=== PATIENT | female | born 1965 | race Caucasian/White ===

== ENCOUNTER 2020-03-10 09:06 | Inpatient (IN) ==
--- NOTE | 2020-03-10 09:53 | ERNOTE ---
Date of Service: 03/10/20 Time Seen by Provider: 03/10/20 09:49 Stated Complaint: covid positive Presenting Symptoms:: cough, sore throat, fever Source: patient Exam Limitations: no limitations Immunizations: IMMUNIZATION HX Immunizations Up to Date Yes History of Influenza Vaccine Yes Allergies/Adverse Reactions: Allergies No Known Allergies Allergy (Verified 03/10/20 09:19) Home Medications: HOME MEDICATIONS valacyclovir 1 gram tablet 1,000 mg PO DAILY #30 tab 06/14/18 [Last Taken Unknown] meloxicam 15 mg tablet 15 mg PO DAILY #90 tab 12/05/18 [Last Taken Unknown] hydrochlorothiazide 25 mg tablet 25 mg PO DAILY #90 tab 10/05/19 [Last Taken Unknown] - History of Present Ilness Narrative: dx on tuesday with covid has had worsening of symptoms, dyspnea , cough fever,loss of sense of smell Timing: constant, getting worse Severity: moderate Review of Systems - Review of Systems Constitutional: Present: See HPI EYE: Present: no symptoms reported ENT: Present: no symptoms reported Respiratory: Present: See HPI Cardiology: Present: no symptoms reported Gastrointestinal/Abdominal: Present: no symptoms reported Genitourinary: Present: no symptoms reported Musculoskeletal: Present: no symptoms reported Skin: Present: no symptoms reported Neurological: Present: no symptoms reported Endocrine: Present: no symptoms reported, unexplained weight loss Psych: Present: no symptoms reported Medical History (Last Reviewed 03/10/20 @ 09:20 by Jayla Dumont RN) Hyperlipidemia Onset Date: ~07/02/15 Obesity Bronchitis, acute Onset Date: ~11/08/11 Elevated blood pressure reading without diagnosis of hypertension Onset Date: ~11/08/11 Surgical History: Surgical History (Last Reviewed 03/10/20 @ 09:20 by Jayla Dumont RN) Wart wart removed on hands and feet Family History: Family History (Last Reviewed 03/10/20 @ 09:20 by Jayla Dumont RN) Father Hypertension Cancer Liver cancer Social History: (Last Reviewed 03/10/20 @ 09:20 by Jayla Dumont RN) Social History: adopted: No prison: No Marital status: lives independently: No household members: spouse number of children: 0 current occupational status: employed 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 Highest education level completed: some college, no degree Sexually Active: Yes Service: No Tobacco: Smoking Status: Former smoker Alcohol: alcohol intake: current alcohol intake frequency: holiday/special occasion Substance Use: substance use type: does not use Dietary Habits: caffeine: Yes Type: coffee Cleo/Bahai: special cleo needs: No Physical Exam - Physical Exam General Appearance: Present: mild distress Head Exam: Present: normal inspection, no evidence of injury Ears, Nose, Throat: Present: normal ENT inspection, normal pharynx Neck: Present: normal inspection, nontender Respiratory: Present: respiratory distress, crackles, rales, rhonchi Cardiovascular/Chest: Present: regular rate, rhythm, no murmur, normal peripheral pulses Gastrointestinal/Abdominal: Present: normal bowel sounds, nontender, nondistended, soft, no organomegaly Back Exam: Present: normal inspection, normal range of motion, no CVA tenderness, no vertebral tenderness Extremity Exam: Present: normal inspection, non-tender, normal range of motion, no edema Neurological Exam: Present: alert, oriented, normal mood/affect, no motor/sensory deficits Skin Exam: Present: normal color, warm/dry Lymphatic Exam: Present: no adenopathy Progress - Date and Time Seen: Date and Time: 03/10/20 11:59 patient unchanged, case discussed with dr collins, to be admitted - Results and Orders Patient's Lab Results:: I have reviewed the patient's lab results. - Vital Signs Patient's Vital Signs:: I have reviewed the patient's vital signs. Vital Signs: Vital Signs 03/10/20 09:15 Temperature 36.8 C Pulse Rate 86 Respiratory Rate 24 H Blood Pressure 146/95 H O2 Sat by Pulse Oximetry 89 L - EKG EKG #1 EKG: NSR - X-Ray X-Ray #1 X-Ray: chest Interpretation: Discd w/ radiologist - infiltrates bilaterally - Progress/Reassessment Chief Complaint: Upper Respiratory Symptoms Progress:: Unchanged - Transfer of Care Expected Disposition: Admit Plan - Plan Plan: to admit to hospital Departure Clinical Impression: COVID-19, Pneumonia - Departure Disposition: Short Term Hospital Inpatient Condition: Serious Referrals: Ronn Collins DO [Primary Care Provider] -
[2020-03-10 09:56] LABS: Hematocrit 48.1 % (37.0-47.0); Hemoglobin 15.4 gm/dL (12.5-16.0); Mean Cell Volume 87.9 fl (78-100); Mean Corpuscular Hemoglobin 28.2 pg (27-31); Mean Platelet Volume 9.5 fl (8-12.5); Neutrophil % 69.1 % (42-75.0); Platelet Count 225 K/mm3 (150-450); Red Blood Count 5.47 M/mm3 (4.2-5.4); Red Cell Distribution Width 12.6 % (11.5-14.0); White Blood Count 5.8 K/mm3 (4.0-10.5)
[2020-03-10 10:04] LABS: Anion Gap 13.6 mmol/L (6.8-13.8); BUN/Creatinine Ratio 13.6 (9.0-21.6); Bilirubin, Total 0.5 mg/dL (0.0-1.1); Ca. Corrected For Albumin 9.3 mg/dL (8.4-10.2); Calcium * 8.8 mg/dL (7.9-10.9); Carbon Dioxide 29.2 mmol/L (24-32.6); Potassium 2.8 mmol/L (3.4-4.6); Total Protein 7.7 gm/dL (6.2-8.2)
[2020-03-10] MEDS ORDERED: DEXAMETHASONE SODIUM PHOSP/PF 10 MG/ML VIAL IV ONE (11:55)
[2020-03-10] MEDS: NORMAL SALINE 1,000 ML IV PRN ×2 (13:15→21:58)
[2020-03-10] MEDS ORDERED: AZITHROMYCIN 250 MG TABLET PO ONE (21:01)
[2020-03-10] MEDS ORDERED: POTASSIUM CHLORIDE 20 MEQ TABLET.SA PO ONE (21:01)
--- NOTE | 2020-03-10 23:54 | HP ---
Chief Complaint - Chief Complaint Date of Service: 03/10/20 Time of Service: 23:14 Chief Complaint: Shortness of breath with COVID19 History of Present Illness: Pamela is a 55 yo female diagnosed with COVID19 a week ago. She reports she started having shortness of breath and cough about 11 days ago, got tested 7 days ago, and then has become progressively more short of breath. She reports some mild fevers and fatigue. She has a mild productive cough. She was seen in the ER today for worsening shortness of breath and a chest xray showed multilobe pneumonia (SUBTLE PATCHY INFILTRATES LEFT MIDLUNG AND RIGHT LUNG BASE.) She has been borderline hypoxic with oxygen dropping to 88% briefly with exertion but returning quickly to above 90% with rest. She reports multiple family members with COVID19 that she has been in close contact with. Medical History (Last Reviewed 03/10/20 @ 13:17 by Aida Dominguez RN) Hyperlipidemia Onset Date: ~07/02/15 Obesity Bronchitis, acute Onset Date: ~11/08/11 Elevated blood pressure reading without diagnosis of hypertension Onset Date: ~11/08/11 Surgical History: Surgical History (Last Reviewed 03/10/20 @ 13:17 by Aida Dominguez RN) Wart wart removed on hands and feet Family History: Family History (Last Reviewed 03/10/20 @ 13:17 by Aida Dominguez RN) Father Hypertension Cancer Liver cancer Social History: (Last Reviewed 03/10/20 @ 13:17 by Aida Dominguez RN) Social History: adopted: No chcf: No Marital status: lives independently: No household members: spouse number of children: 0 current occupational status: employed 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 Absent: Chills EENTM: Present: No Symptoms Reported Respiratory: Present: Cough, Shortness of Breath Cardiac: Absent: Chest Pain, Edema, Palpitations Abdominal: Absent: Nausea, Vomiting Genitourinary: Present: No Symptoms Reported Musculoskeletal: Present: No Symptoms Reported Neurological: Present: No Symptoms Reported Skin: Present: No Symptoms Reported Endocrine: Present: No Symptoms Reported Immunizations: IMMUNIZATION HX Immunizations Up to Date Yes History of Influenza Vaccine Yes Allergies/Adverse Reactions: Allergies Allergy/AdvReac Type Severity Reaction Status Date / Time No Known Allergies Allergy Verified 03/10/20 09:19 Home Medications: HOME MEDICATIONS meloxicam 15 mg tablet 15 mg PO DAILY #90 tab 12/05/18 [Last Taken Unknown] hydrochlorothiazide 25 mg tablet 25 mg PO DAILY #90 tab 10/05/19 [Last Taken Unknown] valACYclovir HCL [Valtrex] 1,000 mg PO DAILY PRN 03/10/20 [Last Taken Unknown] Exam - Exam Vital Signs: Vital Signs - Last Taken Temp 36.4 C 03/10/20 22:21 Pulse 78 03/10/20 22:21 Resp 20 03/10/20 22:21 BP 148/85 H 03/10/20 22:21 Pulse Ox 96 03/10/20 22:21 Constitutional: Present: Alert, Oriented x3, Cooperative ENT Exam: Present: hearing grossly normal Eye Exam: bilateral eye: normal inspection Respiratory: Present: chest non-tender, lungs clear, normal breath sounds, no respiratory distress Cardiovascular/Chest: Present: regular rate, rhythm, no murmur Peripheral Pulses: radial (R): 2+, radial (L): 2+ Abdomen: Present: Normal bowel sounds, soft, nontender, nondistended Skin Exam: Present: normal color, warm/dry, no cyanosis Neurologic: Present: no motor/sensory deficits, alert, normal mood/affect, oriented x 3 Appearance: Present: appropriate appearance, appropriate insight Eye contact: Present: cooperative, good eye contact, normal speech Thoughts: Present: normal thought pattern, no apparent hallucination Diagnostic Studies: Abnormal Lab Results 03/10/20 03/10/20 03/10/20 Range/Units 09:38 09:38 11:20 RBC 5.47 H (4.2-5.4) M/mm3 Hct 48.1 H (37.0-47.0) % Immature Gran % (Auto) 0.50 H (0.001-0.429) % Lymphocytes # 1.38 L (1.5-3.5) k/mm3 pCO2 30.3 L (32.0-45.0) mmHg pO2 80.1 L (83.0-108.0) mmHg ABG pH 7.50 H (7.35-7.45) Potassium 2.8 L (3.4-4.6) mmol/L Random Glucose 114 H (70-110) mg/dL Albumin 3.0 L (3.4-5.0) gm/dl Laboratory Results WBC 5.8 K/mm3 (4.0-10.5) 03/10/20 09:38 RBC 5.47 M/mm3 (4.2-5.4) H 03/10/20 09:38 Hgb 15.4 gm/dL (12.5-16.0) 03/10/20 09:38 Hct 48.1 % (37.0-47.0) H 03/10/20 09:38 MCV 87.9 fl (78-100) 03/10/20 09:38 MCH 28.2 pg (27-31) 03/10/20 09:38 MCHC 32.0 g/dl (32-36) 03/10/20 09:38 RDW 12.6 % (11.5-14.0) 03/10/20 09:38 Plt Count 225 K/mm3 (150-450) 03/10/20 09:38 MPV 9.5 fl (8-12.5) 03/10/20 09:38 Immature Gran % (Auto) 0.50 % (0.001-0.429) H 03/10/20 09:38 Immature Gran # (Auto) 0.03 K/mm3 (0.000-0.0310) 03/10/20 09:38 Neutrophils % 69.1 % (42-75.0) 03/10/20 09:38 Lymphocytes % 23.7 % (20-51) 03/10/20 09:38 Monocytes % 6.3 % (0.0-9) 03/10/20 09:38 Eosinophils % 0.2 % (0.0-3.0) 03/10/20 09:38 Basophils % 0.2 % (0.0-1.0) 03/10/20 09:38 Nucleated RBC % 0.0 k/mm3 (0-1) 03/10/20 09:38 Neutrophils # 4.0 K/mm3 (1.3-6.0) 03/10/20 09:38 Lymphocytes # 1.38 k/mm3 (1.5-3.5) L 03/10/20 09:38 Monocytes # 0.4 k/mm3 (0.0-1.0) 03/10/20 09:38 Eosinophils # 0.0 k/mm3 (0.0-0.7) 03/10/20 09:38 Absolute Basophils 0.0 k/mm3 (0.0-0.1) 03/10/20 09:38 pCO2 30.3 mmHg (32.0-45.0) L 03/10/20 11:20 pO2 80.1 mmHg (83.0-108.0) L 03/10/20 11:20 HCO3 22.8 mmol/L (21.0-28.0) 03/10/20 11:20 Total CO2 23.8 mmol/L (19.0-24.0) 03/10/20 11:20 Base Excess 0.7 mmol/L (-2.0-3.0) 03/10/20 11:20 ABG pH 7.50 (7.35-7.45) H 03/10/20 11:20 ABG O2 Sat (Measured) 96.8 % (94.0-98.0) 03/10/20 11:20 Sodium 138 mmol/L (132-142) 03/10/20 09:38 Plasma Sodium 138 mmol/L (130-142) 03/10/20 09:38 Potassium 2.8 mmol/L (3.4-4.6) L 03/10/20 09:38 Chloride 98 mmol/L (97-106) 03/10/20 09:38 Carbon Dioxide 29.2 mmol/L (24-32.6) 03/10/20 09:38 Anion Gap 13.6 mmol/L (6.8-13.8) 03/10/20 09:38 BUN 12 mg/dL (3-23) 03/10/20 09:38 Creatinine 0.88 mg/dL (0.4-1.4) 03/10/20 09:38 Est GFR (Non-Af Amer) 71 mL/min (60-130) 03/10/20 09:38 BUN/Creatinine Ratio 13.6 (9.0-21.6) 03/10/20 09:38 Random Glucose 114 mg/dL (70-110) H 03/10/20 09:38 Lactic Acid, Venous 1.4 mmol/L (0.4-2.0) 03/10/20 09:38 Calcium 8.8 mg/dL (7.9-10.9) 03/10/20 09:38 Calcium Adj for Albumin 9.3 mg/dL (8.4-10.2) 03/10/20 09:38 Total Bilirubin 0.5 mg/dL (0.0-1.1) 03/10/20 09:38 AST 39 U/L (0-48) 03/10/20 09:38 ALT 42 U/L (19-67) 03/10/20 09:38 Alkaline Phosphatase 115 U/L (50-170) 03/10/20 09:38 Total Protein 7.7 gm/dL (6.2-8.2) 03/10/20 09:38 Albumin 3.0 gm/dl (3.4-5.0) L 03/10/20 09:38 Assessment/Plan - Narrative Narrative: Pamela is a 55 yo female with COVID19 and pneumonia present on chest xray. She has no significant hypoxia. Pneumonia may be primarily due to COVID19 or may be a secondary bacterial infection. Will treat with azithromycin/rocephin to cover treatment of both. Will start oral prednisone as she is not hypoxic. If becomes hypoxic would start IV dexamethasone. No oxygen required at this time so will admit to observation and monitor oxygen saturation overnight. She may be able to discharge to home tomorrow if she has no hypoxic events and is clinically improving. - Assessment/Plan (1) COVID-19 Problem: Acute (2) Pneumonia Problem: Acute
[2020-03-11] MEDS: predniSONE 20 MG TABLET PO SCH (08:00)
[2020-03-11] MEDS: MELOXICAM 15 MG TABLET PO SCH (08:00)
[2020-03-11] MEDS: HYDROCHLOROTHIAZIDE 25 MG TABLET PO SCH (08:00)
[2020-03-11 10:13] LABS: Albumin * 2.8 gm/dl (3.4-5.0); Anion Gap 12.2 mmol/L (6.8-13.8); BUN/Creatinine Ratio 20.6 (9.0-21.6); Bilirubin, Total 0.4 mg/dL (0.0-1.1); Ca. Corrected For Albumin 9.6 mg/dL (8.4-10.2); Carbon Dioxide 29.1 mmol/L (24-32.6); Potassium 3.3 mmol/L (3.4-4.6); Total Protein 7.2 gm/dL (6.2-8.2)
[2020-03-11] MEDS: ENOXAPARIN SODIUM 40 MG/0.4 ML SYRG SC SCH (12:29)
[2020-03-11] MEDS ORDERED: AZITHROMYCIN 250 MG TABLET PO SCH (21:00)
--- NOTE | 2020-03-11 23:52 | PN ---
Subjective - Date and Time Seen Date: 03/11/20 Time: 12:00 Subjective Narrative: Pamela has had rigors today and significant dyspnea with exertion. With activity her oxygen has dropped into the 80s but will quickly improve to 90 and above with rest. She has not required oxygen. She does not feel able to discharge. Lab reports blood culture growing gram positive cocci in clusters, suspect staph. Objective - Vitals Vitals: Last Vital Signs Temp 36.6 C 03/11/20 21:04 Pulse 74 03/11/20 21:04 Resp 18 03/11/20 21:04 BP 145/77 H 03/11/20 21:04 Pulse Ox 98 03/11/20 21:04 - Abnormal Lab Findings Abnormal Lab Findings: Abnormal Lab Results 03/11/20 Range/Units 09:57 Potassium 3.3 L (3.4-4.6) mmol/L Random Glucose 118 H (70-110) mg/dL Albumin 2.8 L (3.4-5.0) gm/dl - Exam Constitutional: Present: Alert, Oriented x3, Cooperative, No distress ENT Exam: Present: hearing grossly normal Respiratory: Present: lungs clear, respiratory distress - tachypnea Cardiovascular/Chest: Present: regular rate, rhythm, no edema, no murmur Abdomen: Present: Normal bowel sounds, soft, nontender, nondistended Extremity: Present: normal inspection Skin Exam: Present: warm/dry Neurologic: Present: no motor/sensory deficits, alert, normal mood/affect, oriented x 3 Appearance: Present: appropriate appearance, appropriate insight Eye contact: Present: cooperative, good eye contact Assessment/Plan Plan Narrative: Pamela has COVID 19 with secondary bacteremia of staph and possible COVID19 pneumonia or secondary bacterial pneumonia. Continue azithromycin and rocephin. Await blood cultures as Pamela is clinically not worsening. May adjust antibioitcs based on culture results. Continue prednisone. She is not feeling well enough with rigors and dyspnea to be able to discharge to home plus it would be unsafe with pending blood culture final results on top of her COVID19 condition. Anticipate discharge in 2-3 days. - Problems/Diagnosis (1) COVID-19 Problem: Acute (2) Pneumonia Problem: Acute (3) Hypokalemia Problem: Acute (4) Bacteremia Problem: Acute
[2020-03-12] MEDS: MELOXICAM 15 MG TABLET PO SCH (09:12)
[2020-03-12] MEDS: predniSONE 20 MG TABLET PO SCH (09:12)
[2020-03-12] MEDS: HYDROCHLOROTHIAZIDE 25 MG TABLET PO SCH (09:12)
[2020-03-12] MEDS: ENOXAPARIN SODIUM 40 MG/0.4 ML SYRG SC SCH (11:08)
--- NOTE | 2020-03-12 12:26 | DS ---
(1) COVID-19 Problem: Acute (2) Pneumonia Problem: Acute Qualifiers: Laterality: right Lung location: lower lobe of lung (3) Hypokalemia Problem: Resolved (4) Bacteremia Problem: Ruled-out Date of Discharge:: 03/12/20 Hospital Course: Pamela is a 55 yo female admitted for pneumonia with COVID19. Pneum onia on chest xray was right lung base and left midlung. Unclear if pneumonia was viral or secondary bacterial infection. She was significantly short of breath and hypoxic with activity. She did not require oxygen as her oxygenation would improve with just rest. She was admitted to inpatient status due to this hypoxia as well as significant dyspnea at rest and with activity. She was also having rigors and there was concern she had bacteremia. This ultimately showed to be contaminate in just one bottle. She was treated with azithromycin, rocephin, and steroid. She gradually improved and today is feeling pretty good. She has been up without dyspnea and has had no hypoxic events even with activity. She will continue course of azithromycin and cefdinir and prednisone taper. She will remain off work until next Tuesday. Procedures Performed: none Results and Findings: Pending Mircobiology Results 03/10/20 09:38 Blood Blood Culture - Preliminary NO GROWTH AFTER 48 HOURS 03/10/20 10:30 Blood Blood Culture - Preliminary Staphylococcus Species Lab Pending Results 03/10/20 09:38: WBC 5.8, RBC 5.47 H, Hgb 15.4, Hct 48.1 H, MCV 87.9, MCH 28.2, MCHC 32.0, RDW 12.6, Plt Count 225, MPV 9.5, Immature Gran % (Auto) 0.50 H, Sultana ture Gran # (Auto) 0.03, Neutrophils % 69.1, Lymphocytes % 23.7, Monocytes % 6.3, Eosinophils % 0.2, Basophils % 0.2, Nucleated RBC % 0.0, Neutrophils # 4.0, Lymphocytes # 1.38 L, Monocytes # 0.4, Eosinophils # 0.0, Absolute Basophils 0.0 03/10/20 09:38: Sodium 138, Plasma Sodium 138, Potassium 2.8 L, Chloride 98, Carbon Dioxide 29.2, Anion Gap 13.6, BUN 12, Creatinine 0.88, Est GFR (Non-Af Amer) 71, BUN/Creatinine Ratio 13.6, Random Glucose 114 H, Calcium 8.8, Calcium Adj for Albumin 9.3, Total Bilirubin 0.5, AST 39, ALT 42, Alkaline Phosphatase 115, Total Protein 7.7, Albumin 3.0 L 03/10/20 09:38: Lactic Acid, Venous 1.4 03/10/20 11:20: pCO2 30.3 L, pO2 80.1 L, HCO3 22.8, Total CO2 23.8, Base Excess 0.7, ABG pH 7.50 H, ABG O2 Sat (Measured) 96.8 03/11/20 09:57: Sodium 141, Plasma Sodium 141, Potassium 3.3 L, Chloride 103, Carbon Dioxide 29.1, Anion Gap 12.2, BUN 14, Creatinine 0.68, Est GFR (Non-Af Amer) 96 D, BUN/Creatinine Ratio 20.6, Random Glucose 118 H, Calcium 9.0, Calcium Adj for Albumin 9.6, Total Bilirubin 0.4, AST 38, ALT 48, Alkaline Phosphatase 104, Total Protein 7.2, Albumin 2.8 L Discharge Location: Home Disposition: Home self-care Condition: Good Discharge Activity: Activity as tolerated Discharge Diet: General/regular food Referrals: Ronn Luz DO [Primary Care Provider] - One Week Problem Oriented Discharge Instructions to Patient/Family: COVID-19, Community- Acquired Pneumonia, Adult, [id number] Prescriptions (Any new or edited meds): Cefdinir [Omnicef] 300 mg PO Q12H #14 cap Transmission Status: Pending to [facility] #[id number] predniSONE [Prednisone] 2 tab PO DAILY #25 tab Transmission Status: Pending to [facility] #[id number] Azithromycin [Zithromax] 250 mg PO DAILY #3 tab Transmission Status: Pending to [facility] #[id number] Complete Home Medications List: Complete Home Medication List: meloxicam 15 mg tablet 15 mg PO DAILY #90 tab 12/05/18 hydrochlorothiazide 25 mg tablet 25 mg PO DAILY #90 tab 10/05/19 valACYclovir HCL [Valtrex] 1,000 mg PO DAILY PRN 03/10/20 Azithromycin [Zithromax] 250 mg PO DAILY #3 tab 03/12/20 Azithromycin [Zithromax] 250 mg PO DAILY #3 tab 03/12/20 Cefdinir [Omnicef] 300 mg PO Q12H #14 cap 03/12/20 predniSONE [Prednisone] 2 tab PO DAILY #25 tab 03/12/20 Forms: Patient Portal Registration
[2020-03-12 13:42] VITALS: BP 148/80
== END 2020-03-12 14:02 | disposition home or self-care (01) | DRG 177 ==
LOC: MS 09:06 → ER 09:06 → OBSVTOIN 12:08 → MS 13:02
PROVIDERS: ADMIT Family Medicine; ATTEND Family Medicine